=== PATIENT | female | born 1970 | race Two or more races ===

== ENCOUNTER 2018-03-07 23:54 | Emergency (ER) | payer SELFPAY ==
[2018-03-08] MEDS ORDERED: Sodium Chloride 0.9% 10 ML Syringe FLUSH PRN (00:20)
[2018-03-08] MEDS ORDERED: Ondansetron 4 MG/2 ML SDV IVPUSH ONE (00:20)
[2018-03-08] MEDS ORDERED: fentaNYL 100 MCG/2 ML SDV IVPUSH ONE (00:20)
--- NOTE | 2018-03-08 00:24 | EDM.PDOC ---
ED HPI GENERAL MEDICAL PROBLEM - General Chief Complaint: Abdominal Pain Stated Complaint: STOMACH PAIN Time Seen by Provider: 03/08/18 00:17 Source of Information: Reports: Patient, Family, RN Notes Reviewed History Limitations: Reports: Language Barrier - History of Present Illness INITIAL COMMENTS - FREE TEXT/NARRATIVE: 48-year-old female presents emergency department day sudden onset abdominal pain she has had this pain in the past but not as severe she is very nauseated has vomited 2 times pain is intense rates it a 10 out of 10, there is a language barrier so review of systems an H&P is limited. Right Abdominal Pain Score (Numeric/FACES): 9 - Related Data Allergies Allergy/AdvReac Type Severity Reaction Status Date / Time No Known Allergies Allergy Verified 03/15/14 09:24 Home Meds: Home Meds NK [No Known Home Meds] 03/15/14 [History] Past Medical History - Past Surgical History Female Surgical History: Reports: Hysterectomy Social & Family History - Tobacco Use Smoking Status *Q: Unknown Ever Smoked ED ROS GENERAL - Review of Systems Review Of Systems: See Below Constitutional: Reports: No Symptoms Respiratory: Reports: No Symptoms Cardiovascular: Reports: No Symptoms GI/Abdominal: Reports: Abdominal Pain, Nausea, Vomiting ED EXAM, GI/ABD - Physical Exam Exam: See Below Exam Limited By: No Limitations General Appearance: Alert, Moderate Distress Neck: Normal Inspection, Supple, Non-Tender, Full Range of Motion Respiratory/Chest: No Respiratory Distress, Lungs Clear, Normal Breath Sounds, No Accessory Muscle Use, Chest Non-Tender Cardiovascular: Regular Rate, Rhythm, No Murmur GI/Abdominal Exam: Soft, No Organomegaly, No Distention, No Abnormal Bruit, No Mass, Tender (Epigastric region) Course - Vital Signs Last Recorded V/S: Last Vital Signs Temp 97.1 F 03/08/18 00:10 Pulse 85 03/08/18 00:10 Resp 14 03/08/18 00:10 BP 87/52 L 03/08/18 00:10 Pulse Ox 100 03/08/18 00:10 - Orders/Labs/Meds Orders: Active Orders 24 hr Category Date Time Status Dietary Supplements [RC] BIDMEALS Care 03/08/18 02:16 Ordered Peripheral IV Care [RC] . DIRECTED Care 03/08/18 00:20 Active Abdomen Pelvis w Cont [CT] Urgent Exams 03/08/18 00:20 Taken Lactated Ringers [Ringers, Lactated] 1,000 ml Med 03/08/18 00:30 Active IV ASDIRECTED Sodium Chloride 0.9% [Saline Flush] Med 03/08/18 00:20 Active 10 ml FLUSH ASDIRECTED PRN ceFAZolin [Ancef] 1 gm Med 03/08/18 02:15 Ordered Premix Bag 1 bag IV ONETIME Peripheral IV Insertion Adult [OM.PC] Urgent Oth 03/08/18 00:20 Ordered Medication Orders Lactated Ringer's (Ringers, Lactated) 1,000 mls @ 999 mls/hr IV ASDIRECTED SHANNAN Last Admin: 03/08/18 00:33 Dose: 999 mls/hr Cefazolin Sodium/Dextrose 1 gm (/ Premix) 50 mls @ 100 mls/hr IV ONETIME ONE Stop: 03/08/18 02:44 Sodium Chloride (Saline Flush) 10 ml FLUSH ASDIRECTED PRN PRN Reason: Keep Vein Open Last Admin: 03/08/18 00:33 Dose: 10 ml Labs: Laboratory Tests 03/08/18 03/08/18 03/08/18 Range/Units 00:20 00:20 00:20 WBC 12.0 H (4.5-11.0) K/uL RBC 4.36 (3.30-5.50) M/uL Hgb 13.1 (12.0-15.0) g/dL Hct 39.4 (36.0-48.0) % MCV 90 (80-98) fL MCH 30 (27-31) pg MCHC 33 (32-36) % Plt Count 185 (150-400) K/uL Neut % (Auto) 81 H (36-66) % Lymph % (Auto) 14 L (24-44) % [place] % (Auto) 4 (2-6) % Eos % (Auto) 1 L (2-4) % Baso % (Auto) 0 (0-1) % Sodium 140 (140-148) mmol/L Potassium 3.7 (3.6-5.2) mmol/L Chloride 104 (100-108) mmol/L Carbon Dioxide 24 (21-32) mmol/L Anion Gap 11.8 (5.0-14.0) mmol/L BUN 18 (7-18) mg/dL Creatinine 0.7 (0.6-1.0) mg/dL Est Cr Clr Drug Dosing 70.60 mL/min Estimated GFR (MDRD) > 60 (>60) Glucose 116 H (74-106) mg/dL Lactic Acid (0.4-2.0) mmol/L Calcium 8.7 (8.5-10.1) mg/dL Total Bilirubin 0.2 (0.2-1.0) mg/dL AST 14 L (15-37) U/L ALT 26 (12-78) U/L Alkaline Phosphatase 85 (46-116) U/L Troponin I < 0.017 (0.000-0.056) ng/mL Total Protein 7.2 (6.4-8.2) g/dL Albumin 3.4 (3.4-5.0) g/dL Globulin 3.8 H (2.3-3.5) g/dL Albumin/Globulin Ratio 0.9 L (1.2-2.2) Lipase 372 (73-393) U/L Urine Color Urine Appearance Urine pH (4.5-8.0) Ur Specific [place] (1.008-1.030) Urine Protein (NEGATIVE) mg/dL Urine Glucose (UA) (NEGATIVE) mg/dL Urine Ketones (NEGATIVE) mg/dL Urine Occult Blood (NEGATIVE) Urine Nitrite (NEGATIVE) Urine Bilirubin (NEGATIVE) Urine Urobilinogen (NORMAL) mg/dL Ur Leukocyte Esterase (NEGATIVE) Urine RBC (0-5) Urine WBC (0-5) Ur Epithelial Cells Amorphous Sediment Urine Bacteria Urine Mucus Urine HCG, Qual Negative 03/08/18 03/08/18 Range/Units 00:20 01:36 WBC (4.5-11.0) K/uL RBC (3.30-5.50) M/uL Hgb (12.0-15.0) g/dL Hct (36.0-48.0) % MCV (80-98) fL MCH (27-31) pg MCHC (32-36) % Plt Count (150-400) K/uL Neut % (Auto) (36-66) % Lymph % (Auto) (24-44) % [place] % (Auto) (2-6) % Eos % (Auto) (2-4) % Baso % (Auto) (0-1) % Sodium (140-148) mmol/L Potassium (3.6-5.2) mmol/L Chloride (100-108) mmol/L Carbon Dioxide (21-32) mmol/L Anion Gap (5.0-14.0) mmol/L BUN (7-18) mg/dL Creatinine (0.6-1.0) mg/dL Est Cr Clr Drug Dosing mL/min Estimated GFR (MDRD) (>60) Glucose (74-106) mg/dL Lactic Acid 1.7 (0.4-2.0) mmol/L Calcium (8.5-10.1) mg/dL Total Bilirubin (0.2-1.0) mg/dL AST (15-37) U/L ALT (12-78) U/L Alkaline Phosphatase (46-116) U/L Troponin I (0.000-0.056) ng/mL Total Protein (6.4-8.2) g/dL Albumin (3.4-5.0) g/dL Globulin (2.3-3.5) g/dL Albumin/Globulin Ratio (1.2-2.2) Lipase (73-393) U/L Urine Color Yellow Urine Appearance Clear Urine pH 7.0 (4.5-8.0) Ur Specific [place] 1.010 (1.008-1.030) Urine Protein Negative (NEGATIVE) mg/dL Urine Glucose (UA) Normal (NEGATIVE) mg/dL Urine Ketones Negative (NEGATIVE) mg/dL Urine Occult Blood Negative (NEGATIVE) Urine Nitrite Negative (NEGATIVE) Urine Bilirubin Negative (NEGATIVE) Urine Urobilinogen Normal (NORMAL) mg/dL Ur Leukocyte Esterase Negative (NEGATIVE) Urine RBC 0-5 (0-5) Urine WBC 0-5 (0-5) Ur Epithelial Cells Few Amorphous Sediment Not seen Urine Bacteria Few Urine Mucus Not seen Urine HCG, Qual Meds: Medications Generic Name Dose Route Start Last Admin Trade Name Freq PRN Reason Stop Dose Admin Lactated Ringer's 1,000 mls @ 999 mls/hr 03/08/18 00:30 03/08/18 00:33 Ringers, Lactated IV 999 mls/hr ASDIRECTED SHANNAN Administration Cefazolin Sodium/Dextrose 1 gm 50 mls @ 100 mls/hr 03/08/18 02:15 / Premix IV 03/08/18 02:44 ONETIME ONE Sodium Chloride 10 ml 03/08/18 00:20 03/08/18 00:33 Saline Flush FLUSH 10 ml ASDIRECTED PRN Administration Keep Vein Open Discontinued Medications Generic Name Dose Route Start Last Admin Trade Name Freq PRN Reason Stop Dose Admin Fentanyl 50 mcg 03/08/18 00:20 03/08/18 00:26 Sublimaze IVPUSH 03/08/18 00:21 50 mcg ONETIME ONE Administration Sodium Chloride 70 mls @ 3 mls/sec 03/08/18 01:22 03/08/18 01:30 Normal Saline IV 03/08/18 01:23 3 mls/sec ASDIRECTED STA Administration Iopamidol 81 ml 03/08/18 01:21 03/08/18 01:30 Isovue-300 (61%) IV 03/08/18 01:22 100 ml . DIRECTED STA Administration Ondansetron HCl 4 mg 03/08/18 00:20 03/08/18 00:26 Zofran IVPUSH 03/08/18 00:21 4 mg ONETIME ONE Administration Departure - Departure Time of Disposition: 02:46 Disposition: DC/Tfer to Acute Hospital 02 Condition: Fair Clinical Impression: Cholecystitis - Discharge Information Referrals: PCP,None [Primary Care Provider] - Forms: ED Department Discharge - My Orders Last 24 Hours: My Active Orders 03/08/18 00:20 Peripheral IV Care [RC] . DIRECTED Abdomen Pelvis w Cont [CT] Urgent Sodium Chloride 0.9% [Saline Flush] 10 ml FLUSH ASDIRECTED PRN Peripheral IV Insertion Adult [OM.PC] Urgent 03/08/18 00:30 Lactated Ringers [Ringers, Lactated] 1,000 ml IV ASDIRECTED 03/08/18 02:15 ceFAZolin [Ancef] 1 gm Premix Bag 1 bag IV ONETIME 03/08/18 02:16 Dietary Supplements [RC] BIDMEALS - Assessment/Plan Last 24 Hours: My Active Orders 03/08/18 00:20 Peripheral IV Care [RC] . DIRECTED Abdomen Pelvis w Cont [CT] Urgent Sodium Chloride 0.9% [Saline Flush] 10 ml FLUSH ASDIRECTED PRN Peripheral IV Insertion Adult [OM.PC] Urgent 03/08/18 00:30 Lactated Ringers [Ringers, Lactated] 1,000 ml IV ASDIRECTED 03/08/18 02:15 ceFAZolin [Ancef] 1 gm Premix Bag 1 bag IV ONETIME 03/08/18 02:16 Dietary Supplements [RC] BIDMEALS Plan: Assessment Acuity = acute Site and laterality = cholecystitis with 2.5 mm stone in the neck of the gallbladder Etiology = unknown etiology Manifestations = pain Location of injury = Home Lab values = WBC elevated 12.0 consistent with leukocytosis, remainder CBC and CMP unremarkable troponin was negative CT scan described stone above Plan She is given 1 g Cefizox 1 called discussed case with Dr. Dickson hospitalist client support consultant at [facility] at 02: 40 kindly accepted the patient in transport she is received 50 micrograms fentanyl she will be transported via EMS ground This note was dictated using [employer] voice recognition software please call with any questions on syntax or grammar.
[2018-03-08] MEDS ORDERED: Lactated Ringers 1,000 ML IV SCH (00:30)
[2018-03-08] MEDS ORDERED: Iopamidol 612 MG/ML 100 ML Bottle IV STA (01:21)
[2018-03-08] MEDS ORDERED: ceFAZolin 1 GM in Premix Bag 1 BAG IV ONE ×2 (02:15→02:49)
[2018-03-08 02:28] VITALS: BP 116/71
[2018-03-08] MEDS ORDERED: ceFAZolin 1 GM Vial ONE (02:52)
[2018-03-08] MEDS ORDERED: Sodium Chloride 0.9% 50 ML ONE (02:53)
== END 2018-03-08 02:59 ==
LOC: JP.ED 23:54
DX: K80.10 Calculus of gallbladder with chronic cholecystitis without obstruction (principal)
CPT/HCPCS: 36415; 74177; 80053; 81001; 81025; 83605; 83690; 84484; 85025; 96361; 96372; 96374; 96375; 99285; J0690; J2405; J3010; J7030; J7120; Q9967